=== PATIENT | female | born 1975 | race Caucasian/White ===

== ENCOUNTER 2018-06-19 14:09 | Outpatient (CLI) | payer OTHER | END 2018-06-19 14:29 | disposition home or self-care (01) | LOC: SONOGRAMA 14:09 | DX: M81.0 Age-related osteoporosis without current pathological fracture (principal); Z13.820 Encounter for screening for osteoporosis; N83.00 Follicular cyst of ovary, unspecified side; E03.8 Other specified hypothyroidism; E04.1 Nontoxic single thyroid nodule; D25.9 Leiomyoma of uterus, unspecified; N80.8 Other endometriosis ==